=== PATIENT | female | born 1965 | race Asian ===

== ENCOUNTER 2023-09-01 23:21 | Emergency (ER) | payer BC, OTHER ==
[2023-09-01 23:27] VITALS: BP 149/87; PULSE 69; RESP 18; TEMP 97.5; BMI 23.8
[2023-09-02 00:30] LABS: BASO % 0.9 % (0-2.0); EOS % 5.4 % (0-4.5); HEMATOCRIT 36.6 % (32.4-45.2); HEMOGLOBIN 12.7 GM/dL (10.7-15.3); LYMPH % 36.9 % (8-40); MCH 31.1 pg (25.7-33.7); MCHC 34.6 g/dl (32.0-36.0); MEAN CELL VOLUME 89.7 fl (80-96); MEAN PLT VOLUME 8.7 fl (7.5-11.1); MONO % 8.1 % (3.8-10.2); NEUT % 48.7 % (42.8-82.8); PLATELET COUNT 210 10^3/uL (134-434); RBC 4.08 M/mm3 (3.60-5.2); RDW 13.5 % (11.6-15.6); WHITE BLOOD COUNT 8.4 K/mm3 (4.0-10.0)
[2023-09-02] MEDS ORDERED: ONDANSETRON 4 MG/2 ML VIAL ONE (00:49)
[2023-09-02] MEDS ORDERED: ACETAMINOPHEN INJECTION 100 ML IVPB ONE (00:49)
[2023-09-02 00:50] LABS: POTASSIUM 3.9 mmol/L (3.5-5.1)
[2023-09-02 00:52] LABS: ALBUMIN 3.6 g/dl (3.4-5.0); CALCIUM 9.5 mg/dL (8.5-10.1)
[2023-09-02 00:53] LABS: BLOOD UREA NITROGEN 14.8 mg/dL (7-18)
[2023-09-02 00:56] LABS: CREATININE 0.8 mg/dL (0.55-1.3)
[2023-09-02] MEDS: SODIUM CHLORIDE 0.9% 500 ML INFUS.BAG IV ONE (00:56)
[2023-09-02] MEDS: ACETAMINOPHEN 1000 MG/100 ML BAG IVPB ONE (00:56)
[2023-09-02 00:57] LABS: BILIRUBIN,TOTAL 0.4 mg/dL (0.2-1); TOT PROT 7.5 g/dl (6.4-8.2)
[2023-09-02] MEDS: ONDANSETRON 4 MG/2 ML VIAL IVPUSH ONE (00:57)
[2023-09-02] MEDS ORDERED: CIPROFLOXACIN 500 MG TABLET (RESTRICTED TO ID) PO ONE (04:20)
[2023-09-02] MEDS ORDERED: metroNIDAZOLE 250 MG TABLET ONE (04:22)
[2023-09-02] MEDS: metroNIDAZOLE 500 MG TABLET PO ONE (04:33)
== END 2023-09-02 04:48 | disposition home or self-care (01) ==
LOC: JER 23:21
PROC: 3E033NZ Introduction of Analgesics, Hypnotics, Sedatives into Peripheral Vein, Percutaneous Approach (ICD-10-PCS; principal; 2023-09-02)
PROC: 3E033GC Introduction of Other Therapeutic Substance into Peripheral Vein, Percutaneous Approach (ICD-10-PCS; 2023-09-02)
DX: R10.32 Left lower quadrant pain (principal); K57.92 Diverticulitis of intestine, part unspecified, without perforation or abscess without bleeding; R11.0 Nausea
CPT/HCPCS: 36415; 74177-TC; 80053; 83605; 85025; 93005; 93010; 99285-25; J0131; Q9967